=== PATIENT | male | born 1950 | race Caucasian/White ===

== ENCOUNTER → 2018-03-23 | Outpatient (CLI) | payer OTHER | END | disposition home or self-care (01) | LOC: ROC 09:05 | PROVIDERS: ATTEND Radiology Radiation Oncology | DX: C34.90 Malignant neoplasm of unspecified part of unspecified bronchus or lung (principal) | CPT/HCPCS: 99214; G0463 ==

== ENCOUNTER → 2019-11-09 | Outpatient (CLI) | payer OTHER | END | disposition home or self-care (01) | LOC: ROC 07:21 | PROVIDERS: ATTEND Radiology Radiation Oncology | DX: C34.12 Malignant neoplasm of upper lobe, left bronchus or lung (principal) | CPT/HCPCS: 99214; G0463 ==

== ENCOUNTER 2019-12-20 08:11 | Outpatient (CLI) | payer OTHER | END 2019-12-20 23:59 | disposition home or self-care (01) | LOC: ROC 08:11 | PROVIDERS: ATTEND Radiology Radiation Oncology | DX: C79.51 Secondary malignant neoplasm of bone (principal); C34.12 Malignant neoplasm of upper lobe, left bronchus or lung | CPT/HCPCS: 99212; G0463 ==

== ENCOUNTER 2020-01-04 08:45 | Outpatient (CLI) | payer OTHER | END 2020-01-04 23:59 | disposition home or self-care (01) | LOC: ROC 08:45 | PROVIDERS: ATTEND Radiology Radiation Oncology | DX: Z02.9 Encounter for administrative examinations, unspecified (principal) ==

== ENCOUNTER → 2020-02-18 | Outpatient (CLI) | payer OTHER | END | disposition home or self-care (01) | LOC: EDSTATUS 11-25 20:00 → ROC 07:50 | PROVIDERS: ATTEND Radiology Radiation Oncology | DX: C79.51 Secondary malignant neoplasm of bone (principal); C34.12 Malignant neoplasm of upper lobe, left bronchus or lung | CPT/HCPCS: 99212; G0463 ==